=== PATIENT | female | born 1970 | race Caucasian/White ===

== ENCOUNTER 2020-11-21 14:43 | Emergency (ER) | payer OTHER ==
[~2020-11-21 14:43] MED LIST: BACTRIM DS TAB1 EACH PO; BENTYL10 MG PO; CILOXAN5 ML EYEBOTH; HYDROCODON-ACE1 EAC4 PO; KEFLEX500 MG PO; MEDROL 4MG DOSEP4 MG PO; NAPROXEN500 MG PO; NORCO 5-325 TA1 EACH PO; OCUFLOX5 ML EYEBOTH; PHENERGAN25 M1 PO; VENTOLIN HFA IN18 GM INH; ZOFRAN4 MG PO; ZPAK PO
[2020-11-21 16:08] LABS: CORONAVIRUS 2019 SARS-COV-2 NEGATIVE (NEGATIVE); INFLUENZA A NAA NEGATIVE (NEGATIVE)
== END 2020-11-21 15:50 | disposition home or self-care (01) ==
LOC: FER 14:43
PROVIDERS: Nurse Practitioner Family
DX: B34.9 Viral infection, unspecified (principal); J45.909 Unspecified asthma, uncomplicated; Z20.822 Contact with and (suspected) exposure to COVID-19
CPT/HCPCS: 99283; U0002

== ENCOUNTER 2021-03-01 19:05 | Emergency (ER) | payer OTHER ==
[2021-03-01 20:07] LABS: BASOPHIL 0.5 % (0-2); EOSINOPHIL 3.3 % (0-5); HCT 43.7 % (37.0-47.0); HGB 14.5 g/dl (12.5-16.0); LYMPHOCYTE 34.2 % (15-48); MCHC 33.2 g/dL (32.0-36.0); MCV 93.6 fL (78.0-100.0); MONOCYTE 10.3 % (0-12); MPV 9.8 fL (6.0-9.5); NEUTROPHIL 51.4 % (41-80); NRBC 0; PLT 306 K/uL (150-400); RBC 4.67 M/uL (4.20-5.40); RDW 14.1 % (11.5-14.0)
[2021-03-01 20:29] LABS: AMPHETAMINES NEGATIVE (NEGATIVE); BARBITURATES NEGATIVE (NEGATIVE); ECSTASY (MDMA) NEGATIVE (NEGATIVE); MARIJUANA (THC) NEGATIVE (NEGATIVE); METHADONE NEGATIVE (NEGATIVE); OPIATES NEGATIVE (NEGATIVE); OXYCODONE NEGATIVE (NEGATIVE)
[2021-03-01 20:31] LABS: ALBUMIN 3.5 g/dL (3.4-5.0); BILIRUBIN - TOTAL 0.4 mg/dL (0.2-1.0); BUN/CREAT RATIO (CALC) 18.6 RATIO; CREATININE 0.59 mg/dL (0.51-0.95); GLOBULIN (CALCULATION) 3.1 g/dL; POTASSIUM 3.8 mmol/L (3.5-5.1); TOTAL PROTEIN 6.6 g/dL (6.4-8.2)
[2021-03-01] MEDS ORDERED: MEDROL 4MG DOSEP4 MG PO (23:29)
[2021-03-01] MEDS ORDERED: PERCOCET 5-3251 EACH PO (23:29)
[2021-03-01] MEDS ORDERED: CYCLOBENZAPRINE10 MG PO (23:29)
[2021-03-01] MEDS ORDERED: IBUPROFEN800 MG PO (23:29)
== END 2021-03-02 00:18 | disposition home or self-care (01) ==
LOC: FER 19:05
PROVIDERS: Emergency Medicine Emergency Medical Services
DX: S20.212A Contusion of left front wall of thorax, initial encounter (principal); Y04.2XXA Assault by strike against or bumped into by another person, initial encounter; Y92.009 Unspecified place in unspecified non-institutional (private) residence as the place of occurrence of the external cause; Y07.03 Male partner, perpetrator of maltreatment and neglect
CPT/HCPCS: 36415; 70450; 70486; 70491; 71260; 80053; 80305; 84484; 85025; 94010; J1100; J1170; J1885; J2405; Q9967